=== PATIENT | male | born 1995 | race Two or more races ===

== ENCOUNTER 2021-08-27 02:43 | Emergency (ER) | payer MEDICAID ==
[~2021-08-27] VITALS: Ht 175.3 cm; Wt 76.7 kg
[2021-08-27 02:43] VITALS: BP 114/77
[2021-08-27] MEDS ORDERED: diphenhdrAMINE HCL 50 MG/1 ML VL IV ONE (03:00)
[2021-08-27] MEDS ORDERED: DexAMETHasone SOD PHOS 10MG/1ML VIAL INJ IV ONE (03:00)
[2021-08-27] MEDS ORDERED: FAMOTIDINE (10MG/ML) 2ML VL IV ONE (03:00)
[2021-08-27] MEDS ORDERED: METH4PAK PO (06:45)
== END 2021-08-27 06:57 | disposition home or self-care (01) ==
LOC: ER 02:43
DX: T78.40XA Allergy, unspecified, initial encounter (principal); F12.10 Cannabis abuse, uncomplicated; X58.XXXA Exposure to other specified factors, initial encounter
CPT/HCPCS: 96374; 96375; 99284; J1100; J1200; J3490